=== PATIENT | male | born 1940 | race Caucasian/White ===

== ENCOUNTER 2018-10-07 19:23 | Inpatient (IN) | payer OTHER ==
[~2018-10-07] VITALS: Ht 182.9 cm; Wt 123.0 kg
[2018-10-07 19:46] LABS: HEMATOCRIT 51.1 % (41-53); HEMOGLOBIN 17.4 g/dL (13.5-17.5); MEAN CORPUSCULAR HEMOGLOBIN 33.4 pg (26.0-34.0); MEAN CORPUSCULAR VOLUME 98 fL (80-100); PLATELET COUNT (AUTO) 405 K/uL (150-450); RED BLOOD CELL COUNT(AUTO) 5.21 MIL/uL (4.50-5.90); RED CELL DISTRIBUTION WIDTH 13.4 % (11.5-14.5)
[2018-10-07 19:53] LABS: INR 1.1 (0.9-1.1); PROTHROMBIN TIME 11.6 SEC (9.4-11.6)
[2018-10-07] MEDS ORDERED: PARO20TA24 PO (20:01)
[2018-10-07] MEDS ORDERED: ATOR10TA84 PO (20:01)
[2018-10-07] MEDS ORDERED: METF-960 PO (20:01)
[2018-10-07] MEDS ORDERED: SIMV-259 PO (20:01)
[2018-10-07] MEDS ORDERED: LACT30L PO (20:01)
[2018-10-07] MEDS ORDERED: VERA-6 PO (20:01)
[2018-10-07] MEDS ORDERED: FURO40 PO (20:01)
[2018-10-07] MEDS ORDERED: GLIP10 PO (20:01)
[2018-10-07] MEDS ORDERED: TERA5CAP12 PO (20:01)
[2018-10-07] MEDS ORDERED: ALBU8HFA IH (20:01)
[2018-10-07] MEDS ORDERED: ASPI-556 PO (20:01)
[2018-10-07 20:04] LABS: ALBUMIN 2.7 g/dL (3.4-5.0); BILIRUBIN,TOTAL 1.7 mg/dL (0.1-1.0); CALCIUM, TOTAL 9.7 mg/dL (8.8-10.5); CREATININE 1.42 mg/dL (0.60-1.30); POTASSIUM 4.4 mmol/L (3.5-5.1); TOTAL PROTEIN, SERUM 7.5 g/dL (6.4-8.2)
[2018-10-07 20:59] LABS: BAND NEUTROPHILS % (MANUAL) 40 % (0-5); LYMPHOCYTES % (MANUAL) 14 % (22-44); MONOCYTES % (MANUAL) 3 % (2-9); SEGMENTED NEUTROPHILS % 43 % (40-70)
[2018-10-07] MEDS ORDERED: CefTRIAXone 1 GM/DEXTROSE 50 ML IV ONE (21:15)
[2018-10-07] MEDS ORDERED: AZITHROMYCIN 500 MG/NS 250 ML IV ONE (21:15)
[2018-10-07] MEDS ORDERED: SODIUM CHLORIDE 0.9% 2,000 ML IV ONE (21:15)
[2018-10-07] MEDS ORDERED: SODIUM CHLORIDE 0.9% 1,000 ML IV ONE ×3 (21:15→21:30)
[2018-10-07 21:49] LABS: APPEARANCE,URINE TURBID (CLEAR); GLUCOSE, URINE (UA) >=1000 mg/dL (NEGATIVE); KETONES,URINE >=80 mg/dL (NEGATIVE); LEUKOCYTE ESTERASE ,URINE MODERATE (NEGATIVE); NITRATE,URINE NEGATIVE (NEGATIVE); PH,URINE 5.5 (5.0-8.0); PROTEIN,URINE SEE CONFIRM (NEGATIVE)
[2018-10-07 21:53] LABS: BILIRUBIN,URINE PRELIM. POSITIVE (NEGATIVE)
[2018-10-07 21:59] LABS: OCCULT BLOOD,URINE MODERATE (NEGATIVE)
[2018-10-07 22:00] LABS: BACTERIA,URINE Moderate /HPF (None Seen); SULFOSALICYLIC ACID,URINE 3+ (Negative); YEAST,URINE Many /HPF (None Seen)
[2018-10-07 22:11] LABS: LACTIC ACID 4.7 mmol/L (0.4-2.0)
[2018-10-07 22:29] LABS: GLUCOSE,POINT OF CARE 548 MG/DL (70-110)
[2018-10-07] MEDS ORDERED: INSULIN REGULAR, HUMAN 100 UNITS/ML IVP ONE (22:30)
[2018-10-07 23:49] LABS: GLUCOSE,POINT OF CARE 366 MG/DL (70-110)
[2018-10-08] MEDS ORDERED: OxyCODONE HCL/ACETAMINOPHEN 5-325 MG TABLET PO PRN (01:15)
[2018-10-08] MEDS ORDERED: POTASSIUM CHLORIDE 20 MEQ ER TABLET PO PRN (01:15)
[2018-10-08] MEDS ORDERED: ZOLPIDEM TARTRATE 5 MG TABLET PO PRN (01:15)
[2018-10-08] MEDS ORDERED: MORPHINE SULFATE 4 MG/ML SYRINGE IVP PRN (01:15)
[2018-10-08] MEDS ORDERED: DEXTROSE 50%-WATER 25 GM/50 ML SYRINGE IVP PRN ×2 (01:15→19:00)
[2018-10-08] MEDS ORDERED: MAGNESIUM SULFATE 4 GM/WATER 100 ML IV PRN (01:15)
[2018-10-08] MEDS ORDERED: BISACODYL 10 MG RECTAL RECTAL SUPPOSITORY PR PRN (01:15)
[2018-10-08] MEDS ORDERED: MAGNESIUM HYDROXIDE SUSPENSION 30 ML UDCUP PO PRN (01:15)
[2018-10-08] MEDS ORDERED: ONDANSETRON HCL 4 MG/2 ML VIAL IVP PRN (01:15)
[2018-10-08] MEDS ORDERED: MAGNESIUM OXIDE 400 MG TABLET PO PRN (01:15)
[2018-10-08] MEDS ORDERED: ACETAMINOPHEN 325 MG TABLET PO PRN (01:15)
[2018-10-08] MEDS ORDERED: IPRATROPIUM BROMIDE 0.5 MG/2.5 ML NEB SOLUTION NEB PRN (01:15)
[2018-10-08] MEDS ORDERED: MAGNESIUM SULFATE 2 GM/WATER 50 ML IV PRN (01:15)
[2018-10-08] MEDS ORDERED: POTASSIUM CHL 10 MEQ/WATER 50 ML IV PRN (01:15)
[2018-10-08 01:39] VITALS: BP 92/60
[2018-10-08 03:41] VITALS: BP 101/49
[2018-10-08] MEDS ORDERED: SODIUM CHLORIDE 0.9% 1,000 ML IV SCH (05:30)
[2018-10-08] MEDS: INSULIN LISPRO 100 UNITS/ML SQ PRN ×4 (06:11→23:46)
[2018-10-08 07:06] VITALS: BP 97/50
[2018-10-08 07:44] LABS: GLUCOMETER DEV NAME(LOC) 5S.1; GLUCOSE,POINT OF CARE 374 MG/DL (70-110)
[2018-10-08] MEDS: ASPIRIN 81 MG EC TABLET PO SCH (08:28)
[2018-10-08] MEDS: ATORVASTATIN CALCIUM 10 MG TABLET PO SCH (08:28)
[2018-10-08] MEDS: PARoxetine HCL 20 MG TABLET PO SCH (08:28)
[2018-10-08] MEDS ORDERED: SIMVASTATIN 10 MG TABLET PO SCH (09:00)
[2018-10-08] MEDS: HEPARIN SODIUM,PORCINE 5,000 UNITS/ML VIAL SQ SCH ×2 (09:00→21:26)
[2018-10-08 09:54] LABS: CREATININE 2.11 mg/dL (0.60-1.30); POTASSIUM 4.8 mmol/L (3.5-5.1)
[2018-10-08 09:57] LABS: HEMOGLOBIN 15.5 g/dL (13.5-17.5); MEAN CORPUSCULAR HEMOGLOBIN 32.9 pg (26.0-34.0); MEAN CORPUSCULAR HGB CONC 33.6 G/dL (31.0-37.0); MEAN CORPUSCULAR VOLUME 98 fL (80-100); PLATELET COUNT (AUTO) 347 K/uL (150-450); RED CELL DISTRIBUTION WIDTH 13.6 % (11.5-14.5)
[2018-10-08 10:00] LABS: ALBUMIN 2.1 g/dL (3.4-5.0); TOTAL PROTEIN, SERUM 6.5 g/dL (6.4-8.2)
[2018-10-08] MEDS ORDERED: PROPOFOL 1000 MG/ISO-OSM 100 ML IV PRN (10:15)
[2018-10-08 11:13] LABS: BASOPHILS % (AUTO) 0.2 % (0.0-2.0); EOSINOPHILS % (AUTO) 0.1 % (1.0-6.0); LYMPHOCYTES # (AUTO) 1.1 K/uL (1.0-4.8); LYMPHOCYTES % (AUTO) 9.7 % (22.0-44.0); MONOCYTES # (AUTO) 0.2 K/uL (0.1-1.0); MONOCYTES % (AUTO) 1.9 % (2.0-9.0); NEUTROPHILS # (AUTO) 9.8 K/uL (1.8-7.7)
[2018-10-08 11:17] LABS: NEUTROPHILS % (AUTO) 88.1 % (40.0-70.0)
[2018-10-08] MEDS ORDERED: DOXYCYCLINE HYCLATE 100 MG CAPSULE PO SCH (11:30)
[2018-10-08] MEDS ORDERED: SODIUM CHLORIDE 0.9% 500 ML IV ONE (11:36)
[2018-10-08] MEDS ORDERED: RINGERS SOLUTION,LACTATED 1,000 ML IV ONE (11:37)
[2018-10-08] MEDS ORDERED: RINGERS SOLUTION,LACTATED 500 ML IV SCH (11:45)
[2018-10-08 12:00] VITALS: BP 104/61
[2018-10-08] MEDS ORDERED: CefTRIAXone 1 GM/DEXTROSE 50 ML IV SCH (12:00)
[2018-10-08] MEDS: RINGERS SOLUTION,LACTATED 1,000 ML IV SCH ×2 (13:03→22:19)
[2018-10-08] MEDS: MethylPREDNISolone SOD SUCC 125 MG/2 ML VIAL IVP SCH ×3 (13:08→23:45)
[2018-10-08 13:44] LABS: ABG A-A DIFF O2 327.4 mmHg (10-20.0); ABG BASE EXCESS -0.8 mmol/L (-2.0-3.0); ABG CARBOXYHEMOGLOBIN 1.2 % (0.0-1.5); ABG HCO3 22.9 mmol/L (22.0-26.0); ABG METHEMOGLOBIN 0.4 % (0.0-1.5); ABG OXYHEMOGLOBIN 98.4 % (94.0-100.0); ABG PCO2 57 mmHg (35-45); ABG PH 7.278 (7.35-7.450); ABG TOTAL HEMOGLOBIN 15.3 G/dL (12.0-18.0); PO2, ARTERIAL BG 329.9 mmHg (71.0-79.0); SOURCE, BLOOD GAS ARTERIAL; TEMPERATURE, FAHRENHEIT, BG 97.9 FAHREN (96.0-98.6)
[2018-10-08 13:45] LABS: O2 DEVICE,BLOOD GAS VENTILATOR (ROOM AIR); SITE, BLOOD GAS LFT RADIAL; VT, ABG 550 ml
[2018-10-08 13:46] LABS: PEEP,BG 5 cm H2O; SPONTANEOUS VT, BG 520 ml
[2018-10-08 14:04] LABS: GLUCOMETER DEV NAME(LOC) 5N.2; GLUCOSE,POINT OF CARE 333 MG/DL (70-110)
[2018-10-08] MEDS: PROPOFOL 1000 MG/ISO-OSM 100 ML IV PRN ×3 (14:19→23:33)
[2018-10-08 14:48] LABS: GLUCOSE,POINT OF CARE 300 MG/DL (70-110)
[2018-10-08] MEDS: PHENYLEPHRINE 200 MG/D5%-WATER 250 ML IV PRN ×2 (15:41→16:08)
[2018-10-08 16:00] VITALS: BP 80/46
[2018-10-08] MEDS: IPRATROPIUM BROMIDE 0.5 MG/2.5 ML NEB SOLUTION NEB SCH ×3 (16:01→22:41)
[2018-10-08] MEDS: ALBUTEROL SULFATE 2.5 MG/0.5 ML NEB SOLUTION NEB SCH ×3 (16:01→22:41)
[2018-10-08] MEDS: NOREPINEPHRINE 4 MG/D5%-WATER 250 ML IV PRN ×3 (16:10→23:33)
[2018-10-08 17:09] LABS: ABG A-A DIFF O2 217.6 mmHg (10-20.0); ABG BASE EXCESS -2.3 mmol/L (-2.0-3.0); ABG CARBOXYHEMOGLOBIN 1.5 % (0.0-1.5); ABG HCO3 22.8 mmol/L (22.0-26.0); ABG METHEMOGLOBIN 0.3 % (0.0-1.5); ABG OXYGEN CONTENT 20.9 mL/dL (15.0-23.0); ABG OXYGEN SATURATION 98.5 % (95.0-98.0); ABG OXYHEMOGLOBIN 96.7 % (94.0-100.0); ABG PCO2 39 mmHg (35-45); ABG PH 7.382 (7.35-7.450); ABG TOTAL HEMOGLOBIN 15.3 G/dL (12.0-18.0); O2 DEVICE,BLOOD GAS VENTILATOR (ROOM AIR); PO2, ARTERIAL BG 95.4 mmHg (71.0-79.0); SITE, BLOOD GAS LFT RADIAL; SOURCE, BLOOD GAS ARTERIAL; TEMPERATURE, FAHRENHEIT, BG 97.9 FAHREN (96.0-98.6); VT, ABG 550 ml
[2018-10-08 17:10] LABS: PEEP,BG 5 cm H2O; SPONTANEOUS VT, BG 540 ml
[2018-10-08] MEDS ORDERED: ETOMIDATE 2 MG/ML 10 ML VIAL IVP ONE (17:14)
[2018-10-08] MEDS ORDERED: VECURONIUM BROMIDE 10 MG/VIAL IVP ONE (17:14)
[2018-10-08] MEDS: PANTOPRAZOLE SODIUM 40 MG/VIAL IVP SCH (18:36)
[2018-10-08 20:00] VITALS: BP 135/71
[2018-10-08] MEDS ORDERED: CefTRIAXone SODIUM 2 GM in DEXTROSE 5%-WATER 50 ML IV SCH (21:00)
[2018-10-08] MEDS ORDERED: TERAZOSIN HCL 5 MG CAPSULE PO SCH (21:00)
[2018-10-08] MEDS ORDERED: SODIUM CHLORIDE 0.9% 250 ML IV ONE (21:06)
[2018-10-08] MEDS ORDERED: AZITHROMYCIN 500 MG/NS 250 ML IV SCH (22:00)
[2018-10-09] VITALS: BP 121/67
[2018-10-09] MEDS: IPRATROPIUM BROMIDE 0.5 MG/2.5 ML NEB SOLUTION NEB SCH ×6 (03:15→23:16)
[2018-10-09] MEDS: ALBUTEROL SULFATE 2.5 MG/0.5 ML NEB SOLUTION NEB PRN (03:15)
[2018-10-09 04:00] VITALS: BP 108/64
[2018-10-09] MEDS: PROPOFOL 1000 MG/ISO-OSM 100 ML IV PRN ×5 (04:44→22:46)
[2018-10-09 05:14] LABS: HEMATOCRIT 38.7 % (41-53); HEMOGLOBIN 13.6 g/dL (13.5-17.5); MEAN CORPUSCULAR VOLUME 94 fL (80-100); PLATELET COUNT (AUTO) 280 K/uL (150-450); RED BLOOD CELL COUNT(AUTO) 4.11 MIL/uL (4.50-5.90); RED CELL DISTRIBUTION WIDTH 13.4 % (11.5-14.5)
[2018-10-09 05:16] LABS: INR 1.2 (0.9-1.1); PROTHROMBIN TIME 12.2 SEC (9.4-11.6)
[2018-10-09 05:27] LABS: HEMOGLOBIN A1C 10.4 % (4.5-6.2)
[2018-10-09 05:30] LABS: ALBUMIN 1.8 g/dL (3.4-5.0); BILIRUBIN,TOTAL 0.7 mg/dL (0.1-1.0); CALCIUM, TOTAL 7.9 mg/dL (8.8-10.5); CHOL/HDL RATIO 5.4 (4.2-7.3); CREATININE 2.88 mg/dL (0.60-1.30); MAGNESIUM 1.2 mg/dL (1.80-2.40); PHOSPHORUS 1.9 mg/dL (2.5-4.9); POTASSIUM 4.2 mmol/L (3.5-5.1); THYROID STIMULATING HORMONE 0.48 uIU/mL (0.36-3.74); TOTAL PROTEIN, SERUM 5.8 g/dL (6.4-8.2)
[2018-10-09 05:35] LABS: BAND NEUTROPHILS % (MANUAL) 56 % (0-5); LYMPHOCYTES % (MANUAL) 4 % (22-44); MONOCYTES % (MANUAL) 2 % (2-9); SEGMENTED NEUTROPHILS % 38 % (40-70)
[2018-10-09] MEDS: INSULIN LISPRO 100 UNITS/ML SQ PRN ×3 (05:41→18:33)
[2018-10-09] MEDS: MethylPREDNISolone SOD SUCC 125 MG/2 ML VIAL IVP SCH ×3 (06:13→18:23)
[2018-10-09] MEDS: ALBUTEROL SULFATE 2.5 MG/0.5 ML NEB SOLUTION NEB SCH ×5 (07:42→23:16)
[2018-10-09] MEDS ORDERED: SODIUM CHLORIDE 0.9% 250 ML IV ONE (07:52)
[2018-10-09 08:00] VITALS: BP 137/68
[2018-10-09] MEDS: RINGERS SOLUTION,LACTATED 1,000 ML IV SCH ×3 (08:11→22:47)
[2018-10-09] MEDS: PARoxetine HCL 20 MG TABLET PO SCH (08:51)
[2018-10-09] MEDS: PANTOPRAZOLE SODIUM 40 MG/VIAL IVP SCH (08:51)
[2018-10-09] MEDS: ASPIRIN 81 MG EC TABLET PO SCH (08:52)
[2018-10-09] MEDS: ATORVASTATIN CALCIUM 10 MG TABLET PO SCH (08:52)
[2018-10-09] MEDS: HEPARIN SODIUM,PORCINE 5,000 UNITS/ML VIAL SQ SCH ×2 (08:52→20:54)
[2018-10-09 09:40] LABS: GLUCOSE,POINT OF CARE 356 MG/DL (70-110)
[2018-10-09] MEDS ORDERED: PIPERACILLIN/TAZO 3.375 GM/D5W 50 ML IV ONE (11:00)
[2018-10-09 11:06] LABS: ABG A-A DIFF O2 165.8 mmHg (10-20.0); ABG BASE EXCESS 1.2 mmol/L (-2.0-3.0); ABG CARBOXYHEMOGLOBIN 1.1 % (0.0-1.5); ABG METHEMOGLOBIN 0.3 % (0.0-1.5); ABG OXYGEN CONTENT 18.3 mL/dL (15.0-23.0); ABG OXYGEN SATURATION 97.1 % (95.0-98.0); ABG OXYHEMOGLOBIN 95.7 % (94.0-100.0); ABG PCO2 34 mmHg (35-45); ABG PH 7.483 (7.35-7.450); ABG TOTAL HEMOGLOBIN 13.6 G/dL (12.0-18.0); PO2, ARTERIAL BG 80.6 mmHg (71.0-79.0); SOURCE, BLOOD GAS ARTERIAL; TEMPERATURE, FAHRENHEIT, BG 98.9 FAHREN (96.0-98.6)
[2018-10-09 11:07] LABS: O2 DEVICE,BLOOD GAS VENTILATOR (ROOM AIR); PEEP,BG 5 cm H2O; SITE, BLOOD GAS LFT RADIAL; VT, ABG 550 ml
[2018-10-09 12:00] VITALS: BP 109/56
[2018-10-09] MEDS ORDERED: VANCOMYCIN HCL 1.25 GM in DEXTROSE 5%-WATER 250 ML IV ONE ×2 (12:00→20:00)
[2018-10-09] MEDS ORDERED: *CLINICAL-LEVOFLOXACIN IVPB DOSING CLINICAL ONE (14:45)
[2018-10-09] MEDS ORDERED: VANCOMYCIN HCL 1 GM/D5% WATER 200 ML IV PRN (15:00)
[2018-10-09 16:00] VITALS: BP 105/55
[2018-10-09] MEDS ORDERED: LEVOFLOXACIN 750 MG/D5% WATER 150 ML IV SCH (16:00)
[2018-10-09 16:58] LABS: GLUCOSE,POINT OF CARE 275 MG/DL (70-110)
[2018-10-09 16:58] LABS: GLUCOSE,POINT OF CARE 267 MG/DL (70-110)
[2018-10-09 16:58] LABS: GLUCOSE,POINT OF CARE 309 MG/DL (70-110)
[2018-10-09] MEDS: PIPERACILLIN SODIUM/TAZOBACTAM 2.25 GM in DEXTROSE 5%-WATER 50 ML IV SCH (18:23)
[2018-10-09 20:00] VITALS: BP 116/66
[2018-10-09 20:03] LABS: GLUCOSE,POINT OF CARE 279 MG/DL (70-110)
[2018-10-09] MEDS: PHENYLEPHRINE 200 MG/D5%-WATER 250 ML IV PRN (22:37)
[2018-10-10] VITALS (8 sets, daily range): BP systolic 99–120; BP diastolic 61–73
[2018-10-10] MEDS: PIPERACILLIN SODIUM/TAZOBACTAM 2.25 GM in DEXTROSE 5%-WATER 50 ML IV SCH ×4 (00:03→17:12)
[2018-10-10] MEDS: MethylPREDNISolone SOD SUCC 125 MG/2 ML VIAL IVP SCH ×4 (00:04→17:13)
[2018-10-10] MEDS: INSULIN LISPRO 100 UNITS/ML SQ PRN ×4 (00:05→18:06)
[2018-10-10] MEDS: PROPOFOL 1000 MG/ISO-OSM 100 ML IV PRN ×6 (01:35→20:43)
[2018-10-10] MEDS ORDERED: SODIUM CHLORIDE 0.9% 250 ML IV ONE (01:37)
[2018-10-10] MEDS: ALBUTEROL SULFATE 2.5 MG/0.5 ML NEB SOLUTION NEB PRN (03:51)
[2018-10-10] MEDS: IPRATROPIUM BROMIDE 0.5 MG/2.5 ML NEB SOLUTION NEB SCH ×6 (03:52→21:58)
[2018-10-10 04:08] LABS: GLUCOSE,POINT OF CARE 261 MG/DL (70-110)
[2018-10-10 05:17] LABS: BASOPHILS % (AUTO) 0.3 % (0.0-2.0); EOSINOPHILS % (AUTO) 0 % (1.0-6.0); HEMATOCRIT 34.8 % (41-53); HEMOGLOBIN 12.3 g/dL (13.5-17.5); LYMPHOCYTES # (AUTO) 0.4 K/uL (1.0-4.8); LYMPHOCYTES % (AUTO) 3.5 % (22.0-44.0); MEAN CORPUSCULAR HEMOGLOBIN 33.6 pg (26.0-34.0); MEAN CORPUSCULAR HGB CONC 35.3 G/dL (31.0-37.0); MEAN CORPUSCULAR VOLUME 95 fL (80-100); MONOCYTES # (AUTO) 0.2 K/uL (0.1-1.0); MONOCYTES % (AUTO) 2.1 % (2.0-9.0); NEUTROPHILS # (AUTO) 9.6 K/uL (1.8-7.7); PLATELET COUNT (AUTO) 177 K/uL (150-450); RED BLOOD CELL COUNT(AUTO) 3.66 MIL/uL (4.50-5.90); RED CELL DISTRIBUTION WIDTH 13.7 % (11.5-14.5)
[2018-10-10] MEDS: RINGERS SOLUTION,LACTATED 1,000 ML IV SCH ×3 (05:25→17:12)
[2018-10-10 05:36] LABS: NEUTROPHILS % (AUTO) 94.1 % (40.0-70.0)
[2018-10-10 05:46] LABS: ALBUMIN 1.5 g/dL (3.4-5.0); BILIRUBIN,TOTAL 0.4 mg/dL (0.1-1.0); CALCIUM, TOTAL 7.8 mg/dL (8.8-10.5); CREATININE 2.56 mg/dL (0.60-1.30); MAGNESIUM 2.2 mg/dL (1.80-2.40); PHOSPHORUS 2.9 mg/dL (2.5-4.9); POTASSIUM 3.9 mmol/L (3.5-5.1); TOTAL PROTEIN, SERUM 4.6 g/dL (6.4-8.2)
[2018-10-10] MEDS: ALBUTEROL SULFATE 2.5 MG/0.5 ML NEB SOLUTION NEB SCH ×5 (07:00→21:58)
[2018-10-10 07:43] LABS: GLUCOSE,POINT OF CARE 236 MG/DL (70-110)
[2018-10-10] MEDS: ATORVASTATIN CALCIUM 10 MG TABLET PO SCH (08:07)
[2018-10-10] MEDS: PANTOPRAZOLE SODIUM 40 MG/VIAL IVP SCH (08:07)
[2018-10-10] MEDS: HEPARIN SODIUM,PORCINE 5,000 UNITS/ML VIAL SQ SCH ×3 (08:08→20:35)
[2018-10-10] MEDS: PARoxetine HCL 20 MG TABLET PO SCH (08:08)
[2018-10-10] MEDS: ASPIRIN 81 MG EC TABLET PO SCH (08:08)
[2018-10-10 08:14] LABS: APPEARANCE,URINE TURBID (CLEAR); BILIRUBIN,URINE NEGATIVE (NEGATIVE); GLUCOSE, URINE (UA) NEGATIVE (NEGATIVE); KETONES,URINE NEGATIVE (NEGATIVE); NITRATE,URINE NEGATIVE (NEGATIVE); PROTEIN,URINE POS 1+ (NEGATIVE); UROBILINOGEN,URINE 0.2 mg/dL (<=1.0)
[2018-10-10 08:34] LABS: LEUKOCYTE ESTERASE ,URINE MODERATE (NEGATIVE); OCCULT BLOOD,URINE MODERATE (NEGATIVE)
[2018-10-10 08:35] LABS: BACTERIA,URINE Many /HPF (None Seen); YEAST,URINE Many /HPF (None Seen)
[2018-10-10 09:06] LABS: ABG A-A DIFF O2 114.5 mmHg (10-20.0); ABG BASE EXCESS 0.3 mmol/L (-2.0-3.0); ABG CARBOXYHEMOGLOBIN 0.7 % (0.0-1.5); ABG HCO3 24.8 mmol/L (22.0-26.0); ABG METHEMOGLOBIN 0.3 % (0.0-1.5); ABG OXYGEN CONTENT 16.9 mL/dL (15.0-23.0); ABG OXYGEN SATURATION 97.5 % (95.0-98.0); ABG OXYHEMOGLOBIN 96.5 % (94.0-100.0); ABG PCO2 40 mmHg (35-45); ABG PH 7.414 (7.35-7.450); ABG TOTAL HEMOGLOBIN 12.4 G/dL (12.0-18.0); O2 DEVICE,BLOOD GAS VENTILATOR (ROOM AIR); PEEP,BG 5 cm H2O; PO2, ARTERIAL BG 88.9 mmHg (71.0-79.0); SITE, BLOOD GAS RT RADIAL; SOURCE, BLOOD GAS ARTERIAL; TEMPERATURE, FAHRENHEIT, BG 98.5 FAHREN (96.0-98.6); VT, ABG 550 ml
[2018-10-10] MEDS ORDERED: SODIUM CHLORIDE 0.9% 500 ML IV ONE (14:18)
[2018-10-10 14:24] LABS: GLUCOSE,POINT OF CARE 259 MG/DL (70-110)
[2018-10-10] MEDS ORDERED: CefTRIAXone SODIUM 2 GM in DEXTROSE 5%-WATER 50 ML IV SCH (23:00)
[2018-10-11] MEDS: MethylPREDNISolone SOD SUCC 125 MG/2 ML VIAL IVP SCH
[2018-10-11 07:19] LABS: GLUCOSE,POINT OF CARE 252 MG/DL (70-110)
== END 2018-10-10 23:30 | disposition short-term general hospital (02) | DRG 871 ==
LOC: EMS 19:24 → 5S 23:54 → ICU 10-08 10:30
PROVIDERS: ADMIT Internal Medicine; ATTEND Internal Medicine
PROC: 5A1945Z Respiratory Ventilation, 24-96 Consecutive Hours (ICD-10-PCS; principal; 2018-10-07)
PROC: 0BH18EZ Insertion of Endotracheal Airway into Trachea, Via Natural or Artificial Opening Endoscopic (ICD-10-PCS; 2018-10-07)
PROC: 5A09357 Assistance with Respiratory Ventilation, Less than 24 Consecutive Hours, Continuous Positive Airway Pressure (ICD-10-PCS; 2018-10-07)
PROC: 02HV33Z Insertion of Infusion Device into Superior Vena Cava, Percutaneous Approach (ICD-10-PCS; 2018-10-08)
PROC: B548ZZA Ultrasonography of Superior Vena Cava, Guidance (ICD-10-PCS; 2018-10-08)
DX: A41.9 Sepsis, unspecified organism (principal); J15.0 Pneumonia due to Klebsiella pneumoniae; J69.0 Pneumonitis due to inhalation of food and vomit; J96.01 Acute respiratory failure with hypoxia; R65.21 Severe sepsis with septic shock; N39.0 Urinary tract infection, site not specified; E66.2 Morbid (severe) obesity with alveolar hypoventilation; E87.2 Acidosis; J44.0 Chronic obstructive pulmonary disease with (acute) lower respiratory infection; J44.1 Chronic obstructive pulmonary disease with (acute) exacerbation; K56.609 Unspecified intestinal obstruction, unspecified as to partial versus complete obstruction; N17.9 Acute kidney failure, unspecified; E11.65 Type 2 diabetes mellitus with hyperglycemia; E78.5 Hyperlipidemia, unspecified; J45.909 Unspecified asthma, uncomplicated; N40.0 Benign prostatic hyperplasia without lower urinary tract symptoms; K21.9 Gastro-esophageal reflux disease without esophagitis; B96.1 Klebsiella pneumoniae [K. pneumoniae] as the cause of diseases classified elsewhere; E11.21 Type 2 diabetes mellitus with diabetic nephropathy; I11.0 Hypertensive heart disease with heart failure; I50.9 Heart failure, unspecified; K43.9 Ventral hernia without obstruction or gangrene; Z74.01 Bed confinement status; Z79.82 Long term (current) use of aspirin; Z79.84 Long term (current) use of oral hypoglycemic drugs; Z87.440 Personal history of urinary (tract) infections; Z79.899 Other long term (current) drug therapy; Z83.3 Family history of diabetes mellitus; Z82.49 Family history of ischemic heart disease and other diseases of the circulatory system; Z68.36 Body mass index [BMI] 36.0-36.9, adult
CPT/HCPCS: 74176; 82570; 82805; 83036; 83605; 83735; 84100; 84156; 84300; 84443; 84540; 87040; 87070; 87081; 87086; 93005; 93306; 94002; 94003; 94640; 94660; 96365; 96367; 99291; C9113; G0378; J0456; J0696; J1644; J1815; J1956; J2370; J2405; J2543; J2704; J2930; J3370; J3475; J3490; J7030; J7040; J7050; J7060; J7120

== ENCOUNTER 2018-12-30 14:33 | Emergency (ER) | payer OTHER ==
[~2018-12-30] VITALS: Ht 180.3 cm; Wt 104.2 kg
[~2018-12-30 14:33] MED LIST: ALBU8HFA IH; ASPI-556 PO; ATOR10TA84 PO; FURO40 PO; GLIP10 PO; LACT30L PO; METF-960 PO; PARO20TA24 PO; SIMV-259 PO; TERA5CAP12 PO; VERA120T90 PO
[2018-12-30] MEDS ORDERED: OMEP20 PO (15:06)
[2018-12-30] MEDS ORDERED: HYDR-3290 PO (15:06)
[2018-12-30] MEDS ORDERED: FLUO-191 PO (15:06)
[2018-12-30] MEDS ORDERED: INSU100V3 SQ (15:06)
[2018-12-30 15:17] LABS: BASOPHILS % (AUTO) 0.8 % (0.0-2.0); EOSINOPHILS % (AUTO) 2.4 % (1.0-6.0); HEMATOCRIT 41.2 % (41-53); HEMOGLOBIN 13.7 g/dL (13.5-17.5); LYMPHOCYTES # (AUTO) 3.5 K/uL (1.0-4.8); LYMPHOCYTES % (AUTO) 29.4 % (22.0-44.0); MEAN CORPUSCULAR HEMOGLOBIN 29.8 pg (26.0-34.0); MEAN CORPUSCULAR HGB CONC 33.3 G/dL (31.0-37.0); MEAN CORPUSCULAR VOLUME 90 fL (80-100); MONOCYTES # (AUTO) 0.6 K/uL (0.1-1.0); MONOCYTES % (AUTO) 4.6 % (2.0-9.0); NEUTROPHILS # (AUTO) 7.5 K/uL (1.8-7.7); NEUTROPHILS % (AUTO) 62.8 % (40.0-70.0); PLATELET COUNT (AUTO) 330 K/uL (150-450); RED CELL DISTRIBUTION WIDTH 14.8 % (11.5-14.5)
[2018-12-30] MEDS ORDERED: ALBUTEROL SULFATE 2.5 MG/0.5 ML NEB SOLUTION NEB ONE (15:30)
[2018-12-30] MEDS ORDERED: SODIUM CHLORIDE 0.9% 1,000 ML IV ONE ×2 (15:30→17:15)
[2018-12-30] MEDS ORDERED: IPRATROPIUM BROMIDE 0.5 MG/2.5 ML NEB SOLUTION NEB ONE (15:30)
[2018-12-30 15:35] LABS: GLUCOSE,POINT OF CARE 383 MG/DL (70-110)
[2018-12-30 15:37] LABS: LACTIC ACID 1.7 mmol/L (0.4-2.0)
[2018-12-30 15:41] LABS: TROPONIN I < 0.02 ng/mL (0.00-0.05)
[2018-12-30] MEDS ORDERED: NITROGLYCERIN 2% (1 GM=INCH) PACKET TP ONE (15:45)
[2018-12-30 15:55] LABS: AMMONIA < 10 umol/L (11-32)
[2018-12-30] MEDS ORDERED: MethylPREDNISolone SOD SUCC 125 MG/2 ML VIAL IVP ONE (16:00)
[2018-12-30] MEDS ORDERED: VANCOMYCIN HCL 1.5 GM in DEXTROSE 5%-WATER 250 ML IV ONE (16:00)
[2018-12-30] MEDS: PIPERACILLIN SODIUM/TAZOBACTAM 2.25 GM in DEXTROSE 5%-WATER 50 ML IV SCH ×3 (16:27→22:11)
[2018-12-30 16:52] LABS: ANION GAP 9 mmol/L (8-16); CALCIUM, TOTAL 10.3 mg/dL (8.8-10.5); CARBON DIOXIDE 28 mmol/L (22-29); CHLORIDE 93 mmol/L (98-107); CREATININE 0.99 mg/dL (0.60-1.30); GLUCOSE,RANDOM 398 mg/dL (70-110); POTASSIUM 4.3 mmol/L (3.5-5.1); SODIUM SERUM 130 mmol/L (136-145); UREA NITROGEN, BLOOD 32 mg/dL (7-18)
[2018-12-30 16:54] LABS: GLOMERULAR FILTR. RATE CALC > 60 mL/min (>60)
[2018-12-30 17:01] LABS: ALANINE AMINOTRANSFERASE 27 U/L (12-78); ALBUMIN 2.9 g/dL (3.4-5.0); ALKALINE PHOSPHATASE 137 U/L (46-116); ASPARTATE AMINOTRANSFERASE 40 U/L (15-37); BILIRUBIN,TOTAL 0.4 mg/dL (0.1-1.0); LIPASE 70 U/L (73-393); TOTAL PROTEIN, SERUM 7.7 g/dL (6.4-8.2)
[2018-12-30 17:16] LABS: ABG A-A DIFF O2 44.6 mmHg (10-20.0); ABG BASE EXCESS 0.8 mmol/L (-2.0-3.0); ABG HCO3 23.6 mmol/L (22.0-26.0); ABG METHEMOGLOBIN 0.2 % (0.0-1.5); ABG OXYGEN CONTENT 19.4 mL/dL (15.0-23.0); ABG OXYGEN SATURATION 93.5 % (95.0-98.0); ABG OXYHEMOGLOBIN 92.4 % (94.0-100.0); ABG PCO2 66 mmHg (35-45); ABG PH 7.246 (7.35-7.450); ABG TOTAL HEMOGLOBIN 14.9 G/dL (12.0-18.0); PO2, ARTERIAL BG 77.1 mmHg (71.0-79.0); SOURCE, BLOOD GAS ARTERIAL; TEMPERATURE, FAHRENHEIT, BG 98.2 FAHREN (96.0-98.6)
[2018-12-30 17:17] LABS: SITE, BLOOD GAS LFT RADIAL
[2018-12-30 17:18] LABS: O2 DEVICE,BLOOD GAS CANNULA (ROOM AIR)
[2018-12-30] MEDS ORDERED: LORazepam 2 MG/ML VIAL IVP ONE ×2 (18:30→18:45)
[2018-12-30 19:08] LABS: PROTHROMBIN TIME 10.4 SEC (9.4-11.6)
[2018-12-30] MEDS ORDERED: IOVERSOL 350 MG/ML 100 ML VIAL ONE (19:48)
[2018-12-30] MEDS ORDERED: SODIUM CHLORIDE 0.9% 100 ML ONE (19:48)
[2018-12-30 22:32] VITALS: BP 95/52
[2018-12-30 23:23] LABS: GLUCOSE,POINT OF CARE 550 MG/DL (70-110)
== END 2018-12-30 23:45 | disposition short-term general hospital (02) ==
LOC: EMS 14:34
DX: J44.1 Chronic obstructive pulmonary disease with (acute) exacerbation (principal); J18.9 Pneumonia, unspecified organism; E86.0 Dehydration; F17.200 Nicotine dependence, unspecified, uncomplicated; I25.10 Atherosclerotic heart disease of native coronary artery without angina pectoris; I11.0 Hypertensive heart disease with heart failure; I50.9 Heart failure, unspecified; E78.00 Pure hypercholesterolemia, unspecified; E11.9 Type 2 diabetes mellitus without complications; F32.9 Major depressive disorder, single episode, unspecified; Z79.84 Long term (current) use of oral hypoglycemic drugs; Z79.82 Long term (current) use of aspirin; Z79.899 Other long term (current) drug therapy; Z79.4 Long term (current) use of insulin
CPT/HCPCS: 36415; 36600; 70450; 71045; 71275; 80053; 82140; 82805; 82948; 82962; 83605; 83690; 83880; 84484; 85025; 85610; 87040; 93005; 94640; 94660; 96365; 96366; 96368; 96375; 99291; J2543; J2930; J3370; J7030; J7050; J7060 ×2; Q9967; J2060

== ENCOUNTER 2019-09-23 17:04 | Inpatient (IN) | payer OTHER ==
[~2019-09-23] VITALS: Ht 167.6 cm; Wt 87.4 kg
[~2019-09-23 17:04] MED LIST changes: +FLUO-191 PO; +HYDR-3290 PO; +INSU100V3 SQ; +OMEP20 PO; -SIMV-259 PO
[2019-09-23] MEDS ORDERED: 0.9% SODIUM CHLORIDE 10 ML SYRINGE IVP PRN (17:30)
[2019-09-23] MEDS ORDERED: PROPOFOL 1000 MG/ISO-OSM 100 ML IV PRN (17:45)
[2019-09-23] MEDS ORDERED: ETOMIDATE 2 MG/ML 10 ML VIAL IVP ONE (17:45)
[2019-09-23] MEDS ORDERED: SUCCINYLCHOLINE CHLORIDE 20 MG/ML 10 ML VIAL IVP ONE (17:45)
[2019-09-23] MEDS ORDERED: SODIUM CHLORIDE 0.9% 2,850 ML IV ONE (17:48)
[2019-09-23 17:55] LABS: BASOPHILS % (AUTO) 0.4 % (0.0-2.0); EOSINOPHILS % (AUTO) 0.1 % (1.0-6.0); HEMOGLOBIN 13.9 g/dL (13.5-17.5); LYMPHOCYTES # (AUTO) 1.6 K/uL (1.0-4.8); LYMPHOCYTES % (AUTO) 9.6 % (22.0-44.0); MEAN CORPUSCULAR HEMOGLOBIN 31.3 pg (26.0-34.0); MEAN CORPUSCULAR HGB CONC 32.4 G/dL (31.0-37.0); MEAN CORPUSCULAR VOLUME 97 fL (80-100); MONOCYTES # (AUTO) 0.8 K/uL (0.1-1.0); MONOCYTES % (AUTO) 4.8 % (2.0-9.0); NEUTROPHILS # (AUTO) 13.7 K/uL (1.8-7.7); NEUTROPHILS % (AUTO) 85.1 % (40.0-70.0); PLATELET COUNT (AUTO) 430 K/uL (150-450); RED BLOOD CELL COUNT(AUTO) 4.44 MIL/uL (4.50-5.90); RED CELL DISTRIBUTION WIDTH 14.4 % (11.5-14.5)
[2019-09-23 18:09] LABS: INR 1.1 (0.9-1.1); PROTHROMBIN TIME 11.1 SEC (9.4-11.6)
[2019-09-23 18:24] LABS: B-TYPE NATRIURETIC PEPTIDE 56 pg/mL (0-100)
[2019-09-23 18:29] LABS: ALANINE AMINOTRANSFERASE 28 U/L (12-78); ALBUMIN 2.8 g/dL (3.4-5.0); ALKALINE PHOSPHATASE 181 U/L (46-116); ANION GAP 8 mmol/L (8-16); ASPARTATE AMINOTRANSFERASE 26 U/L (15-37); BILIRUBIN,TOTAL 0.3 mg/dL (0.1-1.0); CALCIUM, TOTAL 9.7 mg/dL (8.8-10.5); CARBON DIOXIDE 28 mmol/L (22-29); CHLORIDE 105 mmol/L (98-107); CREATINE KINASE, TOTAL ONLY 615 U/L (39-308); CREATININE 1.38 mg/dL (0.60-1.30); GLOMERULAR FILTR. RATE CALC 49 mL/min (>60); SODIUM SERUM 141 mmol/L (136-145); TOTAL PROTEIN, SERUM 8.7 g/dL (6.4-8.2); UREA NITROGEN, BLOOD 72 mg/dL (7-18)
[2019-09-23] MEDS ORDERED: PIPERACILLIN/TAZO 3.375 GM/D5W 50 ML IV ONE (18:30)
[2019-09-23 18:37] LABS: GLUCOSE,RANDOM 480 mg/dL (70-110)
[2019-09-23 18:39] LABS: PLATELET MORPHOLOGY COMMENT LARGE PLTS PRESENT
[2019-09-23 18:41] LABS: LACTIC ACID 2.4 mmol/L (0.4-2.0)
[2019-09-23] MEDS ORDERED: LEVOFLOXACIN 500 MG/D5% WATER 100 ML IV ONE (18:45)
[2019-09-23] MEDS ORDERED: INSULIN REGULAR, HUMAN 100 UNITS/ML IVP ONE (18:45)
[2019-09-23] MEDS ORDERED: CALCIUM GLUCONATE 100 MG/ML 10 ML IVP ONE (18:45)
[2019-09-23 18:58] LABS: ABG A-A DIFF O2 474.7 mmHg (10-20.0); ABG BASE EXCESS 2.8 mmol/L (-2.0-3.0); ABG CARBOXYHEMOGLOBIN 0.8 % (0.0-1.5); ABG HCO3 25.2 mmol/L (22.0-26.0); ABG METHEMOGLOBIN 0.4 % (0.0-1.5); ABG OXYGEN CONTENT 19.2 mL/dL (15.0-23.0); ABG OXYGEN SATURATION 98.6 % (95.0-98.0); ABG OXYHEMOGLOBIN 97.4 % (94.0-100.0); ABG PH 7.221 (7.35-7.450); ABG TOTAL HEMOGLOBIN 13.8 G/dL (12.0-18.0); PO2, ARTERIAL BG 159.2 mmHg (71.0-79.0); SOURCE, BLOOD GAS ARTERIAL; TEMPERATURE, FAHRENHEIT, BG 100.4 FAHREN (96.0-98.6)
[2019-09-23 19:00] LABS: ABG PCO2 76 mmHg (35-45); O2 DEVICE,BLOOD GAS VENTILATOR (ROOM AIR); PEEP,BG 5 cm H2O; SITE, BLOOD GAS LFT RADIAL; VT, ABG 450 ml
[2019-09-23 19:27] LABS: APPEARANCE,URINE TURBID (CLEAR); BILIRUBIN,URINE NEGATIVE (NEGATIVE); GLUCOSE, URINE (UA) NEGATIVE (NEGATIVE); KETONES,URINE NEGATIVE (NEGATIVE); LEUKOCYTE ESTERASE ,URINE LARGE (NEGATIVE); OCCULT BLOOD,URINE LARGE (NEGATIVE); PH,URINE 5.5 (5.0-8.0); PROTEIN,URINE SEE CONFIRM (NEGATIVE); UROBILINOGEN,URINE 0.2 mg/dL (<=1.0)
[2019-09-23 19:30] LABS: INFLUENZA TYPE A NEGATIVE FOR TYPE A (NEGATIVE); INFLUENZA TYPE B NEGATIVE FOR TYPE B (NEGATIVE)
[2019-09-23 19:37] LABS: BACTERIA,URINE Moderate /HPF (None Seen); NITRATE,URINE POSITIVE (NEGATIVE); SQUAMOUS EPITHELIAL CELL,UR Few /LPF (None Seen); SULFOSALICYLIC ACID,URINE 3+ (Negative); WBC,URINE >100 /HPF (0-5)
[2019-09-23] MEDS ORDERED: ACETAMINOPHEN 325 MG TABLET PO PRN ×2 (20:30→21:45)
[2019-09-23 21:00] LABS: ABG METHEMOGLOBIN 0.3 % (0.0-1.5); SOURCE, BLOOD GAS ARTERIAL; TEMPERATURE, FAHRENHEIT, BG 98.6 FAHREN (96.0-98.6)
[2019-09-23 21:09] LABS: ABG A-A DIFF O2 441.8 mmHg (10-20.0); ABG BASE EXCESS -4.8 mmol/L (-2.0-3.0); ABG CARBOXYHEMOGLOBIN 0.4 % (0.0-1.5); ABG HCO3 20.1 mmol/L (22.0-26.0); ABG OXYGEN CONTENT 15.2 mL/dL (15.0-23.0); ABG OXYHEMOGLOBIN 91.4 % (94.0-100.0); ABG PCO2 54 mmHg (35-45); ABG PH 7.238 (7.35-7.450); ABG TOTAL HEMOGLOBIN 11.8 G/dL (12.0-18.0); PO2, ARTERIAL BG 71.6 mmHg (71.0-79.0)
[2019-09-23 21:10] LABS: O2 DEVICE,BLOOD GAS VENTILATOR (ROOM AIR); PEEP,BG 5 cm H2O; SITE, BLOOD GAS RT RADIAL; VT, ABG 500 ml
[2019-09-23 21:15] LABS: GLUCOSE,POINT OF CARE 313 MG/DL (70-110)
[2019-09-23 21:30] LABS: CALCIUM, TOTAL 9.7 mg/dL (8.8-10.5); CREATININE 1.47 mg/dL (0.60-1.30); POTASSIUM 4.8 mmol/L (3.5-5.1)
[2019-09-23 21:36] LABS: ALBUMIN 2.5 g/dL (3.4-5.0); BILIRUBIN,TOTAL 0.5 mg/dL (0.1-1.0); TOTAL PROTEIN, SERUM 7.6 g/dL (6.4-8.2)
[2019-09-23] MEDS ORDERED: ZOLPIDEM TARTRATE 5 MG TABLET PO PRN (21:45)
[2019-09-23] MEDS ORDERED: ALBUTEROL SULFATE 2.5 MG/0.5 ML NEB SOLUTION NEB PRN (21:45)
[2019-09-23] MEDS ORDERED: BISACODYL 10 MG RECTAL RECTAL SUPPOSITORY PR PRN (21:45)
[2019-09-23] MEDS ORDERED: IPRATROPIUM BROMIDE 0.5 MG/2.5 ML NEB SOLUTION NEB PRN (21:45)
[2019-09-23] MEDS ORDERED: MORPHINE SULFATE 2 MG/ML SYRINGE IVP PRN (21:45)
[2019-09-23] MEDS ORDERED: SODIUM CHLORIDE 0.9% 1,000 ML IV ONE (21:45)
[2019-09-23] MEDS ORDERED: ONDANSETRON HCL 4 MG/2 ML VIAL IVP PRN (21:45)
[2019-09-23] MEDS ORDERED: HYDROCODONE/ACETAMINOPHEN 5-325 MG TABLET PO PRN (21:45)
[2019-09-23] MEDS ORDERED: MAGNESIUM HYDROXIDE SUSPENSION 30 ML UDCUP PO PRN (21:45)
[2019-09-23 21:59] VITALS: BP 110/58
[2019-09-23] MEDS ORDERED: DEXTROSE 50%-WATER 25 GM/50 ML SYRINGE IVP PRN (22:00)
[2019-09-23] MEDS: HEPARIN SODIUM,PORCINE 5,000 UNITS/ML VIAL SQ SCH (23:17)
[2019-09-23] MEDS: PROPOFOL 1000 MG/ISO-OSM 100 ML IV PRN (23:27)
[2019-09-24] VITALS: BP 136/58
[2019-09-24] MEDS ORDERED: MethylPREDNISolone SOD SUCC 125 MG/2 ML VIAL IVP SCH
[2019-09-24] MEDS: INSULIN LISPRO 100 UNITS/ML SQ PRN ×3 (00:07→11:44)
[2019-09-24] MEDS: ALBUTEROL SULFATE 2.5 MG/0.5 ML NEB SOLUTION NEB SCH ×4 (02:16→19:43)
[2019-09-24] MEDS: IPRATROPIUM BROMIDE 0.5 MG/2.5 ML NEB SOLUTION NEB SCH ×4 (02:16→19:43)
[2019-09-24 04:00] VITALS: BP 97/49
[2019-09-24] MEDS ORDERED: INFLUENZA VIRUS VACCINE QVS 2019-20 (3YR+)/PF 60 MCG/0.5 ML SYRINGE IM ONE (05:00)
[2019-09-24 05:12] LABS: HEMATOCRIT 38.8 % (41-53); HEMOGLOBIN 12.7 g/dL (13.5-17.5); MEAN CORPUSCULAR HEMOGLOBIN 31.1 pg (26.0-34.0); MEAN CORPUSCULAR HGB CONC 32.6 G/dL (31.0-37.0); MEAN CORPUSCULAR VOLUME 95 fL (80-100); RED BLOOD CELL COUNT(AUTO) 4.07 MIL/uL (4.50-5.90); RED CELL DISTRIBUTION WIDTH 14.4 % (11.5-14.5)
[2019-09-24 05:26] LABS: ALBUMIN 2.2 g/dL (3.4-5.0); BILIRUBIN,TOTAL 0.6 mg/dL (0.1-1.0); CALCIUM, TOTAL 9.3 mg/dL (8.8-10.5); CREATININE 1.2 mg/dL (0.60-1.30); POTASSIUM 4.5 mmol/L (3.5-5.1)
[2019-09-24 05:35] LABS: GLUCOSE,POINT OF CARE 283 MG/DL (70-110)
[2019-09-24 05:38] LABS: PLATELET COUNT (AUTO) 289 K/uL (150-450)
[2019-09-24 05:39] LABS: PLATELET MORPHOLOGY COMMENT LARGE PLTS PRESENT
[2019-09-24 05:41] LABS: BAND NEUTROPHILS % (MANUAL) 18 % (0-5); BASOPHILS % (MANUAL) 1 % (0-2); LYMPHOCYTES % (MANUAL) 11 % (22-44); MONOCYTES % (MANUAL) 2 % (2-9); SEGMENTED NEUTROPHILS % 68 % (40-70)
[2019-09-24] MEDS: MethylPREDNISolone SOD SUCC 40 MG/ML VIAL IVP SCH ×3 (06:19→18:23)
[2019-09-24 06:53] LABS: GLUCOSE,POINT OF CARE 126 MG/DL (70-110)
[2019-09-24] MEDS: PROPOFOL 1000 MG/ISO-OSM 100 ML IV PRN ×4 (07:06→22:36)
[2019-09-24 08:00] VITALS: BP 106/53
[2019-09-24] MEDS: DOCUSATE SODIUM 100 MG/10 ML LIQUID UDCUP NG SCH ×2 (08:35→20:13)
[2019-09-24] MEDS: PANTOPRAZOLE SODIUM 40 MG/VIAL IVP SCH (08:35)
[2019-09-24] MEDS: BENZONATATE 100 MG CAPSULE NG SCH ×3 (08:35→20:13)
[2019-09-24] MEDS: ASPIRIN 81 MG EC TABLET NG SCH (08:36)
[2019-09-24] MEDS: ATORVASTATIN CALCIUM 10 MG TABLET NG SCH (08:36)
[2019-09-24] MEDS: SODIUM CHLORIDE 0.45% 1,000 ML IV SCH ×2 (08:36→20:01)
[2019-09-24] MEDS: GuaiFENesin SR 600 MG ER TABLET PO SCH ×2 (08:36→20:13)
[2019-09-24] MEDS: HEPARIN SODIUM,PORCINE 5,000 UNITS/ML VIAL SQ SCH ×2 (08:36→16:44)
[2019-09-24] MEDS ORDERED: BENZONATATE 100 MG CAPSULE PO SCH (09:00)
[2019-09-24] MEDS ORDERED: ASPIRIN 81 MG EC TABLET PO SCH (09:00)
[2019-09-24] MEDS ORDERED: PANTOPRAZOLE SODIUM 40 MG DR TABLET PO SCH (09:00)
[2019-09-24] MEDS ORDERED: DOCUSATE SODIUM 100 MG CAPSULE PO SCH (09:00)
[2019-09-24] MEDS ORDERED: ATORVASTATIN CALCIUM 10 MG TABLET PO SCH (09:00)
[2019-09-24] MEDS: MULTIVITAMINS WITH MINERALS, THERAPEUTIC 15 ML UDCUP NG SCH (11:46)
[2019-09-24 12:00] VITALS: BP 124/59
[2019-09-24] MEDS ORDERED: SODIUM CHLORIDE 0.9% 1,000 ML IV ONE (12:00)
[2019-09-24 12:09] LABS: ABG A-A DIFF O2 240.6 mmHg (10-20.0); ABG BASE EXCESS -4.3 mmol/L (-2.0-3.0); ABG HCO3 20.5 mmol/L (22.0-26.0); ABG METHEMOGLOBIN 0.3 % (0.0-1.5); ABG OXYGEN CONTENT 15.6 mL/dL (15.0-23.0); ABG OXYGEN SATURATION 89.5 % (95.0-98.0); ABG OXYHEMOGLOBIN 88.3 % (94.0-100.0); ABG PCO2 51 mmHg (35-45); ABG PH 7.265 (7.35-7.450); ABG TOTAL HEMOGLOBIN 12.6 G/dL (12.0-18.0); PO2, ARTERIAL BG 58.3 mmHg (71.0-79.0); SOURCE, BLOOD GAS ARTERIAL; TEMPERATURE, FAHRENHEIT, BG 98.6 FAHREN (96.0-98.6)
[2019-09-24 12:10] LABS: O2 DEVICE,BLOOD GAS VENTILATOR (ROOM AIR); SITE, BLOOD GAS LFT RADIAL; VT, ABG 500 ml
[2019-09-24 12:11] LABS: PEEP,BG 5 cm H2O
[2019-09-24] MEDS ORDERED: BARIUM SULFATE 0.1% SUSPENSION 450 ML BOTTLE ONE (12:45)
[2019-09-24 16:00] VITALS: BP 117/59
[2019-09-24 16:25] LABS: GLUCOSE,POINT OF CARE 194 MG/DL (70-110)
[2019-09-24] MEDS ORDERED: SUCCINYLCHOLINE CHLORIDE 20 MG/ML 10 ML VIAL IM ONE (18:18)
[2019-09-24] MEDS ORDERED: ETOMIDATE 2 MG/ML 10 ML VIAL IV ONE (18:18)
[2019-09-24] MEDS: LEVOFLOXACIN 750 MG/D5% WATER 150 ML IV SCH (18:23)
[2019-09-24 20:00] VITALS: BP 111/48
[2019-09-24 21:05] LABS: GLUCOSE,POINT OF CARE 238 MG/DL (70-110)
[2019-09-25] VITALS: BP 110/67
[2019-09-25] MEDS: MethylPREDNISolone SOD SUCC 40 MG/ML VIAL IVP SCH ×4 (00:28→17:41)
[2019-09-25] MEDS: HEPARIN SODIUM,PORCINE 5,000 UNITS/ML VIAL SQ SCH ×3 (00:28→16:16)
[2019-09-25] MEDS: INSULIN LISPRO 100 UNITS/ML SQ PRN ×3 (00:30→17:50)
[2019-09-25] MEDS: ALBUTEROL SULFATE 2.5 MG/0.5 ML NEB SOLUTION NEB SCH ×3 (01:42→14:12)
[2019-09-25] MEDS: IPRATROPIUM BROMIDE 0.5 MG/2.5 ML NEB SOLUTION NEB SCH ×3 (01:42→14:12)
[2019-09-25] MEDS: PROPOFOL 1000 MG/ISO-OSM 100 ML IV PRN ×3 (03:57→14:00)
[2019-09-25 04:00] VITALS: BP 106/58
[2019-09-25 05:10] LABS: GLUCOSE,POINT OF CARE 301 MG/DL (70-110)
[2019-09-25 05:37] LABS: HEMATOCRIT 32.2 % (41-53); HEMOGLOBIN 10.6 g/dL (13.5-17.5); MEAN CORPUSCULAR HEMOGLOBIN 31.7 pg (26.0-34.0); MEAN CORPUSCULAR HGB CONC 33.1 G/dL (31.0-37.0); MEAN CORPUSCULAR VOLUME 96 fL (80-100); PLATELET COUNT (AUTO) 231 K/uL (150-450); RED BLOOD CELL COUNT(AUTO) 3.36 MIL/uL (4.50-5.90); RED CELL DISTRIBUTION WIDTH 14.7 % (11.5-14.5)
[2019-09-25] MEDS: SODIUM CHLORIDE 0.45% 1,000 ML IV SCH (05:41)
[2019-09-25 05:47] LABS: CALCIUM, TOTAL 8.5 mg/dL (8.8-10.5); CREATININE 1.47 mg/dL (0.60-1.30); POTASSIUM 4.6 mmol/L (3.5-5.1)
[2019-09-25 06:06] LABS: BAND NEUTROPHILS % (MANUAL) 15 % (0-5); LYMPHOCYTES % (MANUAL) 7 % (22-44); MONOCYTES % (MANUAL) 2 % (2-9); SEGMENTED NEUTROPHILS % 76 % (40-70)
[2019-09-25 07:02] LABS: GLUCOSE,POINT OF CARE 291 MG/DL (70-110)
[2019-09-25 08:00] VITALS: BP 118/63
[2019-09-25] MEDS: DOCUSATE SODIUM 100 MG/10 ML LIQUID UDCUP NG SCH (08:13)
[2019-09-25] MEDS: MULTIVITAMINS WITH MINERALS, THERAPEUTIC 15 ML UDCUP NG SCH (08:13)
[2019-09-25] MEDS: BENZONATATE 100 MG CAPSULE NG SCH ×2 (08:14→16:00)
[2019-09-25] MEDS: ATORVASTATIN CALCIUM 10 MG TABLET NG SCH (08:14)
[2019-09-25] MEDS: PANTOPRAZOLE SODIUM 40 MG/VIAL IVP SCH (08:14)
[2019-09-25] MEDS: ASPIRIN 81 MG EC TABLET NG SCH (08:14)
[2019-09-25] MEDS: GuaiFENesin SR 600 MG ER TABLET PO SCH (08:15)
[2019-09-25] MEDS ORDERED: RINGERS SOLUTION,LACTATED 1,000 ML IV SCH ×2 (09:30→09:47)
[2019-09-25 12:00] VITALS: BP 124/74
[2019-09-25] MEDS ORDERED: MINERAL OIL 133 ML ENEMA PR ONE (14:00)
[2019-09-25] MEDS: ACETYLCYSTEINE 20% 200 MG/ML 4 ML NEB SOLUTION NEB SCH ×2 (14:13→16:34)
[2019-09-25 14:44] LABS: ABG A-A DIFF O2 137.5 mmHg (10-20.0); ABG BASE EXCESS -3.1 mmol/L (-2.0-3.0); ABG CARBOXYHEMOGLOBIN 0.3 % (0.0-1.5); ABG HCO3 22.3 mmol/L (22.0-26.0); ABG METHEMOGLOBIN 0.3 % (0.0-1.5); ABG OXYGEN CONTENT 14.2 mL/dL (15.0-23.0); ABG OXYGEN SATURATION 95.3 % (95.0-98.0); ABG OXYHEMOGLOBIN 94.7 % (94.0-100.0); ABG PCO2 34 mmHg (35-45); ABG PH 7.417 (7.35-7.450); ABG TOTAL HEMOGLOBIN 10.6 G/dL (12.0-18.0); PO2, ARTERIAL BG 72.8 mmHg (71.0-79.0); SOURCE, BLOOD GAS ARTERIAL
[2019-09-25 14:46] LABS: O2 DEVICE,BLOOD GAS VENTILATOR (ROOM AIR); PEEP,BG 5 cm H2O; SITE, BLOOD GAS RT RADIAL; VT, ABG 500 ml
[2019-09-25 16:00] VITALS: BP 120/69
[2019-09-25] MEDS: LEVOFLOXACIN 750 MG/D5% WATER 150 ML IV SCH (17:41)
[2019-09-25 18:22] LABS: GLUCOSE,POINT OF CARE 352 MG/DL (70-110)
[2019-09-25] MEDS ORDERED: INSULIN GLARGINE,HUM.REC.ANLOG 100 UNITS/ML SQ SCH (21:00)
[2019-09-25 21:17] LABS: GLUCOSE,POINT OF CARE 332 MG/DL (70-110)
== END 2019-09-25 19:10 | disposition short-term general hospital (02) | DRG 871 ==
LOC: EMS 17:05 → ICU 20:00
PROVIDERS: ADMIT Internal Medicine; ATTEND Internal Medicine
PROC: 5A1945Z Respiratory Ventilation, 24-96 Consecutive Hours (ICD-10-PCS; principal; 2019-09-23)
PROC: 0BH17EZ Insertion of Endotracheal Airway into Trachea, Via Natural or Artificial Opening (ICD-10-PCS; 2019-09-23)
DX: A41.9 Sepsis, unspecified organism (principal); J96.00 Acute respiratory failure, unspecified whether with hypoxia or hypercapnia; J18.9 Pneumonia, unspecified organism; N39.0 Urinary tract infection, site not specified; J44.0 Chronic obstructive pulmonary disease with (acute) lower respiratory infection; J44.1 Chronic obstructive pulmonary disease with (acute) exacerbation; J91.8 Pleural effusion in other conditions classified elsewhere; N17.9 Acute kidney failure, unspecified; I25.10 Atherosclerotic heart disease of native coronary artery without angina pectoris; E11.9 Type 2 diabetes mellitus without complications; F32.9 Major depressive disorder, single episode, unspecified; E78.00 Pure hypercholesterolemia, unspecified; I11.0 Hypertensive heart disease with heart failure; I50.9 Heart failure, unspecified; E86.0 Dehydration; E78.5 Hyperlipidemia, unspecified; E87.5 Hyperkalemia; K43.9 Ventral hernia without obstruction or gangrene; Z74.01 Bed confinement status
CPT/HCPCS: 36600; 71250; 74176; 82805; 83605; 84145; 87040; 87070; 87081; 87086; 87205; 87804; 93005; 94002; 94003; 94640; 99291; C9113; G0378; J0330; J0610; J1644; J1815; J1956; J2543; J2704; J2920; J2930; J3490; J7030; J7120